=== PATIENT | female | born 1985 | race Caucasian/White ===

== ENCOUNTER 2018-03-07 15:26 | Emergency (ER) | payer OTHER ==
[2018-03-07 15:31] VITALS: BP 104/66
--- NOTE | 2018-03-07 15:36 | EDPHY ---
HPI/HX/ROS/PE/MDM Narrative: CHIEF COMPLAINT: Rash HPI: This patient is a 32 year old female with no significant past medical history. She recently returned from [place] and developed a pruritic urticarial rash yesterday evening. She was in [place] from Thursday to Thursday for work, around [facility]. She received a tetanus shot prior to travelling but no additional immunizations; patient states there is no known typhoid or Zika in the area. She denies swimming or travelling to any remote areas. On her way back, she used her boyfriend's soap. Last night, she began to feel itchy while doing laundry. Today, she felt a burning sensation in her armpits and took a shower but continued to feel itchy. Her mother noticed a rash on her back and they present for evaluation. She has never had similar symptoms in the past. She denies any known allergies. No fever, nausea, or diarrhea. No facial or airway swelling or shortness of breath. REVIEW OF SYSTEMS: Aside from elements discussed in the HPI, a comprehensive 10-point review of systems was reviewed and is negative. PMH: Denies. SOCIAL HISTORY: Recently travelled to [place] for work. Employed. Mother at bedside. PHYSICAL EXAM: General:Patient is alert, in no acute distress. ENT:Eyes are normal to inspection. ENT inspection normal. No facial or oropharyngeal swelling. Neck: Normal inspection. Full range of motion. Respiratory:No respiratory distress. Breath sounds normal bilaterally. Cardiovascular: Regular rate and rhythm. Strong peripheral pulses. Normal cap refill. Abdomen:The abdomen is nontender to palpation. There are no peritoneal signs. There are normal bowel sounds. Back: Normal to inspection. No tenderness to palpation. Skin: Urticarial rash: spotty on torso and flanks, involving the armpits and base of the scalp. No rash on the face or hands. Warm and dry. Extremities: Normal appearance. Full range of motion. Neuro: Oriented x3. Normal motor function. Normal sensory function. ED Course: 32 y/o female presents with patchy pruritic urticarial rash after spending the past week in [place]. She is afebrile, vitals within normal limits. No facial or airway swelling on exam. Plan to consult with infectious disease. 15:[address] Chaidez, infectious disease specialist. He will see the patient in his outpatient clinic on Friday 03/09 at 15:00. Plan to discharge patient home in good condition with prescription for prednisone and referral to Dr. Chaidez as above. Discussed use of Benadryl and topical hydrocortisone cream for symptom relief. The patient and her mother are comfortable with this plan. - Data Points Medications Given: Discontinued Medications Prednisone (Prednisone) 40 mg PO EDNOW ONE Stop: 03/07/18 15:55 Last Admin: 03/07/18 16:00 Dose: 40 mg General Time Seen by Provider: 03/07/18 15:35 Initial Vital Signs: Initial Vital Signs Temperature (C) 36.7 C 03/07/18 15:28 Heart Rate 62 03/07/18 15:28 Respiratory Rate 18 03/07/18 15:28 Blood Pressure 104/66 03/07/18 15:28 O2 Sat (%) 96 03/07/18 15:28 O2 Delivery Mode Room Air Allergies/Adverse Reactions: No Known Allergies Allergy (Unverified 03/07/18 15:28) Home Medications: Medication Instructions Recorded Control 03/07/18 predniSONE 40 mg PO DAILY #6 tab 03/07/18 Departure - Departure Disposition: Home, Routine, Self-Care Clinical Impression: Rash, Urticaria Condition: Good Instructions: Urticaria (ED), Acute Rash (ED) Additional Instructions: Follow up with the travel medicine specialists at the [facility] for further evaluation. Dr. Chaidez will see you on Thursday, 03/09 at 3pm. Take prednisone as prescribed. You may take Benadryl, available over the counter , as directed on the packaging. You may continue using hydrocortisone cream for relief of itchiness. Return to the emergency department if you develop fever, a severe increase in your rash, or other worsening of condition. Referrals: [facility] (ED,. [Edm Groups for Call Sched] - As per Instructions Radha Rodas MD [Primary Care Provider] - As per Instructions Tai Chaidez MD [Medical Doctor] - As per Instructions Prescriptions: predniSONE 40 mg PO DAILY #6 tab Report Scribed for: Jorge Wisdom Report Scribed by: Rebeca Nagel Date of Report: 03/07/18 Time of Report: 15:36 Physician Review and Approval Statement: Portions of this note were transcribed by an ED scribe. I personally performed the history, physical exam, and medical decision making; and confirm the accuracy of the information in the transcribed note.
[2018-03-07] MEDS ORDERED: predniSONE 20 MG TAB PO ONE (15:54)
== END 2018-03-07 16:08 | disposition home or self-care (01) ==
DX: L50.9 Urticaria, unspecified (principal)
CPT/HCPCS: J7512